=== PATIENT | male | born 1985 | race Caucasian/White ===

== ENCOUNTER 2016-10-08 23:34 | Emergency (ER) | payer OTHER ==
[~2016-10-08] VITALS: Ht 175.3 cm; Wt 77.7 kg
[2016-10-08 23:46] VITALS: TEMP 36.9; Ht 175.3 cm; Wt 77.7 kg
[2016-10-08] MEDS ORDERED: SODIUM CHLORIDE 0.9% 1000ML 1,000 ML IV STA (23:55)
[2016-10-08] MEDS ORDERED: DiphenhydrAMINE HCL 50 MG/ML VIAL IV STA (23:55)
[2016-10-08] MEDS ORDERED: DEXAMETHASONE SOD INJ 4 MG/ML VIAL IV STA (23:55)
[2016-10-08] MEDS ORDERED: FAMOTIDINE IV INJ 20 MG in DEXTROSE 5% 100ML 100 ML IV STA (23:55)
[2016-10-09] MEDS ORDERED: FAMOTIDINE 20MG/102 ML D5W ONE
[2016-10-09] MEDS ORDERED: CETI10TA10 PO (00:13)
[2016-10-09 00:16] VITALS: O2SAT 98
[2016-10-09] MEDS ORDERED: PRED50TA PO (00:24)
[2016-10-09] MEDS ORDERED: EPP3/2 IM (00:24)
--- NOTE | 2016-10-09 00:25 | EMERGENCY ROOM VISIT NOTE ---
History Report prepared by Israelibdenae: Mariya Kevin Under the Supervision of: Dr. Rajiv Benavidez M.D. First contact with patient: 23:51 Chief Complaint: ALLERGIC REACTION Stated Complaint: ALLERGIC REACTION,FACIAL SWELLING History of Present Illness The patient is a 31 year old male who presents to the Emergency Room with complaints of a waxing and waning allergic reaction that began this morning. He notes that he woke up with diffuse hives this morning. He took a Zyrtec and did notice some improvement in his symptoms. Later in the day, the hives returned and he developed facial swelling. He took 1 Benadryl about 4.5 hours ago with no relief. Currently, he states that his hands are very itchy. The patient has no known allergies other than some seasonal allergies.He has had a few episodes of hives in the past, but never this bad. He has also never experienced facial swelling. He denies any contact with new chemicals, soaps, or detergents. He has had some GI issues with eating tree nuts in the past but denies eating any nuts recently. He has not eaten anything new. Pt denies LOC, headache, fevers, chills, diaphoresis, visual changes, neck pain, chest pain, breathing difficulties, nausea, vomiting, abdominal pain, back pain, melena, hematochezia , urinary symptoms, numbness, weakness, lymphadenopathy, or other complaints. Source of History: patient Onset: this morning Position: other (skin) Quality: other (hives) Timing: waxes/wanes Modifying Factors (Relieving): other (Zyrtec) Note: Other symptoms: facial swelling Review of Systems See HPI for pertinent positives and negatives. A total of ten systems were reviewed and were otherwise negative. Past Medical & Surgical Surgical Problems: (1) H/O arthroscopic knee surgery Family History Heart disease Social History Smoking Status: Never Smoker Smokeless Tobacco Use: No Alcohol Use: occasionally Marital Status: Housing Status: lives with family Occupation Status: employed Current/Historical Medications Scheduled Prednisone (Prednisone), 50 MG PO DAILY Scheduled PRN Cetirizine Hcl (Zyrtec), 10 MG PO DAILY PRN for ALLERGIC REACTION Epinephrine (Epipen), 0.3 MG IM UD PRN for ALLERGIC REACTION Allergies Coded Allergies: Nut Tree (Verified Allergy, Unknown, GI symptoms, 10/08/16) Physical Exam Vital Signs Date Time Temp Pulse Resp B/P Pulse Ox O2 Delivery O2 Flow Rate FiO2 10/09/16 02:18 90 20 120/65 96 Room Air 10/09/16 01:24 106 20 130/67 99 Room Air 10/09/16 00:20 98 Room Air 10/09/16 00:20 112 10/09/16 00:16 98 Room Air 10/09/16 00:16 98 Room Air 10/08/16 23:46 36.9 107 20 134/83 94 Room Air Physical Exam GENERAL: Awake, alert, well-appearing, in no distress HENT: Normocephalic, atraumatic. Oropharynx unremarkable. EYES: Normal conjunctiva. Sclera non-icteric. NECK: Supple. No nuchal rigidity. FROM. No JVD. RESPIRATORY: Clear to auscultation. CARDIAC: Regular rate, normal rhythm. Extremities warm and well perfused. Pulses equal. ABDOMEN: Soft, non-distended. No tenderness to palpation. No rebound or guarding. No masses. RECTAL: Deferred. MUSCULOSKELETAL: Chest examination reveals no tenderness. The back is symmetrical on inspection without obvious abnormality. There is no CVA tenderness to palpation. No joint edema. LOWER EXTREMITIES: Calves are equal size bilaterally and non-tender. No edema. No discoloration. NEURO: Normal sensorium. No sensory or motor deficits noted. SKIN: No jaundice noted. Patchy erythematous hive-like rash concentrated on the trunk and extremities. Medical Decision & Procedures Medications Administered Medications (Trade) Dose Ordered Sig/Nathalia Route Start Time Stop Time Status Last Admin Dose Admin Sodium Chloride (Nss 1000ml) 1,000 ml @ 999 mls/hr Q1H1M STAT IV 10/08/16 23:55 10/09/16 00:55 DC 10/09/16 00:19 999 MLS/HR Diphenhydramine HCl (Benadryl Inj) 50 mg NOW STAT IV 10/08/16 23:55 10/08/16 23:57 DC 10/09/16 00:19 50 MG Dexamethasone Sodium Phosphate (Decadron Inj) 10 mg NOW STAT IV 10/08/16 23:55 10/08/16 23:57 DC 10/09/16 00:19 10 MG Famotidine (Pepcid 20mg/100 ml) 20 mg STK-MED ONCE .ROUTE 10/09/16 00:00 10/09/16 00:02 DC 10/09/16 00:18 20 MG ED Course 2355: The patient was evaluated in room B12B. A complete history and physical exam was performed. Ordered Famotidine 20 mg/Dextrose 102 ml @ 200 mls/hr IV, Decadron Inj 10 mg IV, Benadryl Inj 50 mg IV, NSS 1000 ml @ 999 mls/hr IV. 0211: I reevaluated the patient. He was feeling better. Discussed results and discharge instructions: He verbalized understanding and agreement. The patient is ready for discharge. Medical Decision Triage Nursing notes reviewed and agree them. Additional history obtained from his significant other. The patient's history was concerning for possible allergic reaction. Differential diagnosis: Etiologies such as allergic reaction, urticaria, anaphylaxis,Rodriguez-Kevyn syndrome, toxic epidermal necrolysis, erythema multiforme, cellulitis, as well as others were entertained. Physical examination: As above. ER treatment provided: Continuous cardiac monitoring Benadryl 50 mg IV Pepcid 20 mg IV Decadron 10 mg IV On reassessment the patient felt better. Diagnostic interpretation by me: Deferred It appears the patient had an allergic reaction vs urticarial rash. The exact etiology is unknown at this time. Follow-up allergy testing will be necessary. The above treatment did well to reverse the symptoms. After prolonged monitoring and frequent reassessments the patient did very well and symptoms improved. Rash is still present but less prominent. Patient notes his feeling so facial swelling has resolved. By the evaluation outlined above emergent etiologies such as airway compromise, Rodriguez-Kevyn syndrome, toxic epidermal necrolysis, erythema multiforme, cellulitis, as well as others were deemed relatively unlikely. The patient and significant other were informed about the findings as listed above. All questions were answered and they were pleased with the treatment. Return instructions were outlined and the patient was discharged in stable condition. Outpatient prescription management: EpiPen prednisone Referral: The patient was referred back to his primary care physician for follow-up in 2- 3 days for a recheck of the current condition. The chart was completed utilizing [employer] voice recognition software. Grammatical errors, random word insertions, pronoun errors, and incomplete sentences are an occasional side effect of this system due to software limitations, ambient noise, and hardware issues. Any formal questions or concerns about the content, text, or information contained within the body of this dictation should be directly addressed to the physician for clarification. Impression Primary Impression: Urticaria Additional Impression: Allergic reaction Scribe Attestation The scribe's documentation has been prepared under my direction and personally reviewed by me in its entirety. I confirm that the note above accurately reflects all work, treatment, procedures, and medical decision making performed by me. Departure Information Dispostion Home / Self-Care Prescriptions Prednisone (Prednisone) 50 Mg Tab 50 MG PO DAILY for 4 Days, #4 TAB Prov: Rajiv Benavidez MD 10/09/16 Epinephrine (EPIPEN) 0.3 Mg/0.3 Ml Inj 0.3 MG IM UD Y for ALLERGIC REACTION, #1 BOX 1 Refill Prov: Rajiv Benavidez MD 10/09/16 Referrals Amari Cuello M.D. (PCP) Patient Instructions My [facility] Additional Instructions ALLERGIC REACTION INSTRUCTIONS: DO NOT drive, drink alcohol, operate machinery, or perform dangerous activities today. You were given medications in the ER that can affect your ability to safely function or operate a vehicle. Epi-Pen: Use one injection as instructed for severe allergic reactions associated with shortness of breath, difficulty breathing, or throat or tongue swelling. If you use this injection call 911 or proceed immediately to the nearest Emergency Room. Prednisone 50mg: Once daily until the prescription is finished. It is best to take this earlier in the day as some patients note occasional difficulty falling asleep when taken in the late evening. Diphenhydramine(Benadryl) 25mg: use 25 to 50 mg every six hours for swelling, itching, or hives. This medication is sedating and will cause drowsiness. Avoid alcohol, operating machinery or dangerous equipment, working on ladders or roofs, DRIVING, or situations where being under the influence may be dangerous. Zantac 75: Take two pills twice a day along with Benadryl as needed for swelling , itching, or hives. Most people know this for its affect on the stomach, but it also acts similar to, but less potent than Benadryl for allergic reactions. Both the Benadryl and the Zantac are available [id number]. Continue current medications. Return to the emergency department for worsening of your rash, swelling of your face, lips, tongue, or throat, difficulty breathing, vomiting, or as needed. Follow-up with your primary care physician in 2 to 3 days for a recheck of your current condition. Problem Qualifiers
[2016-10-09 02:18] VITALS: BP 120/65; PULSE 90; O2SAT 96
== END 2016-10-09 02:23 | disposition home or self-care (01) ==
LOC: C.EDB 23:35
DX: L50.9 Urticaria, unspecified (principal); T78.40XA Allergy, unspecified, initial encounter; X58.XXXA Exposure to other specified factors, initial encounter

== ENCOUNTER 2018-01-09 03:54 | Emergency (ER) | payer OTHER ==
[~2018-01-09] VITALS: Ht 175.3 cm; Wt 77.2 kg
[~2018-01-09 03:54] MED LIST: CETI10TA10 PO; EPP3/2 IM
[2018-01-09 03:57] VITALS: TEMP 37; Ht 175.3 cm; Wt 77.2 kg
[2018-01-09] MEDS ORDERED: RANITIDINE HCL 50 MG/100 ML D5W IV STA (04:08)
[2018-01-09] MEDS ORDERED: METHYLPREDNISOLONE 125 MG VIAL IV STA (04:08)
[2018-01-09] MEDS ORDERED: SODIUM CHLORIDE 0.9% 1000ML 1,000 ML IV STA (04:10)
[2018-01-09] MEDS ORDERED: DiphenhydrAMINE HCL 50 MG/ML VIAL IV STA (04:10)
--- NOTE | 2018-01-09 04:11 | EMERGENCY ROOM VISIT NOTE ---
History Report prepared by Israelibdenae: Melody Loredo Under the Supervision of: Dr. Andria Marroquin M.D. First contact with patient: 04:03 Chief Complaint: ALLERGIC REACTION Stated Complaint: ALLERGIC REACTION Nursing Triage Summary: PT has had hives for past few days with itching been taking OTC zyrtec with relief and has been using benadryl. PT awoke this am with swelling to lips. PT has no SOB, lungs CTA. skin is mildly itchy all over with discomfort. PT has no difficulty swallowing. unsure of allergies. History of Present Illness The patient is a 32 year old male who presents to the Emergency Room with complaints of persistent moderate hives all over his body since yesterday. He notes that he had a similar allergic reaction last year due to unknown reasons. He was instructed to take Benadryl and Zantac as needed. He took 50 mg of Benadryl at 0330 this morning. He reports taking Zantac at 2000 last night. He notes that his lips have begun to swell. He notes that he had an allergy test, which showed a mild level two reaction to mold, dog, and ragweed. He denies any new medications. He denies any vomiting. He reports a mild allergy to nuts, which presents as stomach cramping. He denies any smoking history. Source of History: patient Onset: since yesterday Position: other (whole body) Symptom Intensity: moderate Quality: other (hives) Timing: other (persistent) Associated Symptoms: No vomiting Note: Note lip swelling. Review of Systems See HPI for pertinent positives & negatives. A total of 10 systems reviewed and were otherwise negative. Past Medical & Surgical Medical Problems: (1) Allergic reaction (2) Urticaria Surgical Problems: (1) H/O arthroscopic knee surgery Family History Heart disease Social History Smoking Status: Never Smoker Smokeless Tobacco Use: No Alcohol Use: occasionally Drug Use: none Marital Status: Housing Status: lives with family Occupation Status: employed Current/Historical Medications Scheduled Prednisone (Prednisone), 40 MG PO DAILY Scheduled PRN Cetirizine Hcl (Zyrtec), 10 MG PO DAILY PRN for ALLERGIC REACTION Epinephrine (Epipen), 0.3 MG IM UD PRN for ALLERGIC REACTION Allergies Coded Allergies: Nut Tree (Verified Allergy, Unknown, GI symptoms, 10/08/16) Physical Exam Vital Signs Date Time Temp Pulse Resp B/P (MAP) Pulse Ox O2 Delivery O2 Flow Rate FiO2 01/09/18 05:52 105 18 123/75 96 Room Air 01/09/18 04:40 104 18 128/77 97 Room Air 01/09/18 04:20 114 01/09/18 03:57 37.0 123 18 140/84 100 Room Air Physical Exam Vital signs reviewed. General: Well-appearing, in no significant distress. HEENT: No scleral icterus, PERRLA, neck supple. Atraumatic. Posterior oropharynx is clear. Mild perioral edema. Cardiovascular: Regular rate and rhythm, no extra sounds. Pulmonary: Clear to auscultation bilaterally, normal work of breathing. Abdomen: Soft, nontender, nondistended, positive bowel sounds. Musculoskeletal: Atraumatic, no peripheral edema. Neurologic: Patient awake alert and oriented x 3 Skin: Warm, dry. Patchy urticarial rash to bilaterally upper and lower extremities, faint trunk involvement. Medical Decision & Procedures Medications Administered Medications (Trade) Dose Ordered Sig/Nathalia Route Start Time Stop Time Status Last Admin Dose Admin Methylprednisolone Sodium Succinate (Solu-Medrol IV) 125 mg NOW STAT IV 01/09/18 04:08 01/09/18 04:10 DC 01/09/18 04:22 125 MG Ranitidine HCl (zANTac IV) 50 mg NOW STAT IV 01/09/18 04:08 01/09/18 04:10 DC 01/09/18 04:34 50 MG Sodium Chloride 1,000 ml @ 999 mls/hr Q1H1M STAT IV 01/09/18 04:10 01/09/18 05:10 DC 01/09/18 04:22 999 MLS/HR Diphenhydramine HCl (Benadryl Inj) 25 mg NOW STAT IV 01/09/18 04:10 01/09/18 04:11 DC 01/09/18 04:22 25 MG ED Course 0407: Past medical records reviewed. The patient was evaluated in room B9. A complete history and physical examination was performed. 0408: Ordered Zantac 50 mg IV and Solu-Medrol 125 mg IV 0410: Ordered Benadryl 25 mg IV and Sodium Chloride 1,000 ml @ 999 mls/hr IV 0545: I reassessed the patient at this time. He is feeling better and notes his swelling has come down a little bit. I discussed the results and treatment plan with the patient. I answered all pertaining questions that he had. He expressed understanding and verbalized agreement. The patient will be discharged home. Medical Decision Differential diagnosis: Etiologies such as allergic reaction, anaphylaxis, urticaria, Rodriguez-Kevyn syndrome, toxic epidermal necrolysis, erythema multiforme, cellulitis, as well as others were entertained. This patient was evaluated and appeared to be in no significant distress. IV access was obtained and laboratory work was drawn. Patient was placed on the ekg monitor and found to be in a normal sinus rhythm. He was given 25 mg of IV Benadryl as he had taken some prior to arrival. Patient was also given IV Solu-Medrol 125 mg and 50 mg of IV Zantac. Patient was hydrated with normal saline solution. He was observed for several hours in the emergency department without exacerbation of symptoms. He did seem to feel better and had slight improvement in his urticaria. I discussed the situation with the patient and he will follow-up with his PCP and/or land leveler this week. He was given a prescription for prednisone for the next 4 days. Patient was also asked to use an EpiPen if symptoms progress and return to the ED immediately for worsening of symptoms or any medical concerns. Medication Reconcilliation Current Medication List: was personally reviewed by me Blood Pressure Screening Patient's blood pressure: Elevated blood pressure Blood pressure disposition: Elevated BP felt to be situational Impression Primary Impression: Allergic reaction Additional Impression: Urticaria Scribe Attestation The scribe's documentation has been prepared under my direction and personally reviewed by me in its entirety. I confirm that the note above accurately reflects all work, treatment, procedures, and medical decision making performed by me. Departure Information Dispostion Home / Self-Care Prescriptions Prednisone (Prednisone) 20 Mg Tab 40 MG PO DAILY, #8 TAB Prov: Andria Marroquin M.D. 01/09/18 Referrals Amari Cuello M.D. (PCP) Forms HOME CARE DOCUMENTATION FORM, IMPORTANT VISIT INFORMATION Patient Instructions My [facility], Urticaria Additional Instructions Diagnosis: Allergic reaction, urticaria Benadryl 25-50 mg every 6 hours as needed for allergic symptoms. Prednisone 40 mg daily for the next 4 days. Please begin tomorrow. Please drink plenty of clear fluids. EpiPen as needed for severe allergic symptoms. Follow-up with your primary care physician or land leveler this week for reevaluation. Return to the emergency department immediately for worsening of symptoms or any medical concerns Problem Qualifiers
[2018-01-09] MEDS ORDERED: PRED20TA PO (05:51)
[2018-01-09 05:52] VITALS: BP 123/75; PULSE 105; O2SAT 96
== END 2018-01-09 05:56 | disposition home or self-care (01) ==
LOC: C.EDB 03:55
DX: T78.40XA Allergy, unspecified, initial encounter (principal); X58.XXXA Exposure to other specified factors, initial encounter; L50.9 Urticaria, unspecified; R03.0 Elevated blood-pressure reading, without diagnosis of hypertension; Z91.018 Allergy to other foods